=== PATIENT | female | born 1945 | race Two or more races ===

== ENCOUNTER 2022-08-18 10:28 | Inpatient (IN) | payer OTHER ==
[~2022-08-18] VITALS: Ht 160 cm; Wt 159.7 kg
[~2022-08-18 10:28] MED LIST: ATENOLOL50 MG; BUSPIRONE HCL5 MG; CAPTOPRIL50 MG; HYDROCHLOROTHIA25 MG; HYOSCYAMINE0.125 M1 SL; INTESTINEX680 M1 PO; OXYC1TAB9 PO; PEPCID AC20 MG PO; RESTORIL15 MG; SERTRALINE HCL25 MG; SIMVASTATIN40 MG
--- NOTE | 2022-08-18 10:35 | NUR ---
PTE ALERTA Y ORIENTADA POR MARLENY ESFERAS CON BUEN PATRON RESPIRATORIO, VIENE EN CLEO POR EMT. SE OBSERVA PTE CON NGT EN FOSA NASAL IZQUIERDA, Y TIENE CANALIZACION #20 EN BRAZO DERECHO CON .[id number] @[email or web address]. PTE REFIERE QUE VIENE POR DOLOR EN COLOSTOMIA DESDE HACE 2 PACHECO ATRAS.
--- NOTE | 2022-08-18 15:22 | NUR ---
SE EDUCA A PTE SOBRE [place] MEDICO ESTA REFIERE ENTENDER, SE JACKELYN MUESTRAS DE LABORATORIO UTILIZANDO MEDIDAS ASEPTICAS. SE COLOCA H/L APTE Y SE ADMINISTRAN MEDICAMENTOS LOS CUALES TOLERA. SE NOTIFICA ESTUDIO DE CT PENDIENTE A REALIZAR.
--- NOTE | 2022-08-18 16:05 | NUR ---
AL MOMENTO DE EJECUTAR ORDENES MEDICAS TANTO PTE MARZENA FAMILIAR DE LA MISMA INDICAN QUE YA SE LE REALIZA UN CT ABD-PELVICO WITH PO CONTRAST EN EL [facility]ITAL DEL [facility] FUE TRANSF[facility] ([facility]), AL MOMENTO PTE NO POSEE LECTURAS NI ESTUDIO, SE NOTIFICA A MS Ino WHITING PARA SEGUIMIENTO.
[2022-08-21] MEDS ORDERED: ACID-PEP20 MG PO (09:59)
[2022-08-21] MEDS ORDERED: LEVSIN/SL0.125 MG SL (09:59)
[2022-08-21] MEDS ORDERED: INTESTINEX680 M1 PO (09:59)
== END 2022-08-21 13:49 | disposition home or self-care (01) | DRG 390 ==
LOC: ER 10:28 → SURG 18:07
PROVIDERS: ADMIT Surgery; ATTEND Surgery
PROC: BW21YZZ Computerized Tomography (CT Scan) of Abdomen and Pelvis using Other Contrast (ICD-10-PCS; principal; 2022-08-19)
DX: K56.699 Other intestinal obstruction unspecified as to partial versus complete obstruction (principal); K43.5 Parastomal hernia without obstruction or gangrene; I10 Essential (primary) hypertension; Z20.822 Contact with and (suspected) exposure to COVID-19